=== PATIENT | male | born 1990 | race Hispanic/Latino ===

== ENCOUNTER 2021-08-20 18:07 | Emergency (ER) | payer BC ==
[~2021-08-20] VITALS: Ht 175.3 cm; Wt 73.0 kg
[~2021-08-20 18:07] MED LIST: BACTRIM DS1 TAB PO; HYDROCORTISO2.51 EX
[2021-08-20 19:58] LABS: HEMATOCRIT 43.1 % (39.0-50.0); IMMATURE GRANULOCYTES 0.2 % (0.0-5.0); MEAN CELL VOLUME 91.7 fL CALC (80.0-100.0); MEAN CORPUSCULAR HGB 31.9 pG CALC (26.0-32.0); MEAN CORPUSCULAR HGB CONC 34.8 g/dL CAL (32.0-36.0); NEUT# 9.74 thou/uL (1.82-7.42); RED BLOOD COUNT 4.7 mill/uL (4.70-6.10); RED CELL DISTRI WIDTH 12.2 % (11.5-15.5)
[2021-08-20 20:15] LABS: ALBUMIN 4.8 g/dL (3.2-5.0); ALKALINE PHOSPHATASE 63 u/l (38-126); AMYLASE 66 u/l (30-110); ANION GAP 10 (6-22 (CALC)); BILIRUBIN, TOTAL 0.8 mg/dL (0.0-1.4); BUN 30 mg/dL (9-20); BUN/CREATININE RATIO 38 (12-20 (CALC)); CARBON DIOXIDE 31 mmol/l (22-30); CHLORIDE 103 mmol/l (95-108); CREATININE 0.8 mg/dL (0.7-1.3); ETHYL ALCOHOL 0 mg/dl (0-30); GFR > 60 ML/MIN (>=60 (CALC)); GFR FOR AFR.AMER. > 60 ML/MIN (>=60 (CALC)); LIPASE 69 u/l (23-300); POTASSIUM 4.7 mmol/l (3.5-5.1); SGOT/AST 28 u/l (17-59); SODIUM 139 mmol/l (137-146); TOTAL PROTEIN 7.7 g/dL (6.3-8.2)
[2021-08-20 20:17] LABS: ACT PARTIAL THROMBO TIME 18.5 SECONDS (20.0-32.5); INTERNATIONAL NORMALIZED RATIO 0.9 RATIO (0.7-1.3); PROTHROMBIN TIME 9.9 SECONDS (9.0-12.5)
[2021-08-20 20:25] LABS: URINE BILIRUBIN - DIPSTICK NEGATIVE (NEGATIVE); URINE BLOOD DIPSTICK NEGATIVE (NEGATIVE); URINE COLOR YELLOW; URINE GLUCOSE - DIPSTICK NEGATIVE (NEGATIVE); URINE KETONE NEGATIVE (NEGATIVE); URINE LEUK ESTERASE NEGATIVE (NEGATIVE); URINE PROTEIN - DIPSTICK NEGATIVE (NEG-TRACE); URINE SPECIFIC GRAVITY 1.015; URINE UROBILINOGEN - DIPSTICK 0.2 E.U./dL (0.2)
[2021-08-20 20:26] LABS: URINE NITRITE - DIPSTICK NEGATIVE (Negative)
[2021-08-20] MEDS ORDERED: PROTONIX40 M2 PO (20:35)
[2021-08-20 21:30] VITALS: BP 125/70
== END 2021-08-20 21:32 | disposition home or self-care (01) | DRG 379 ==
LOC: ED 18:07
PROVIDERS: Family Medicine
DX: K29.21 Alcoholic gastritis with bleeding (principal); F41.9 Anxiety disorder, unspecified
CPT/HCPCS: S0164

== ENCOUNTER 2021-08-20 22:45 | Observation (INO) | payer BC ==
[~2021-08-20] VITALS: Ht 175.3 cm; Wt 72.0 kg
[~2021-08-20 22:45] MED LIST changes: +PROTONIX40 M2 PO
[2021-08-20 23:43] LABS: HEMATOCRIT 35.6 % (39.0-50.0); HEMOGLOBIN 12.2 g/dl (14.0-18.0); IMMATURE GRANULOCYTES 0.7 % (0.0-5.0); MEAN CELL VOLUME 92.5 fL CALC (80.0-100.0); MEAN CORPUSCULAR HGB 31.7 pG CALC (26.0-32.0); MEAN CORPUSCULAR HGB CONC 34.3 g/dL CAL (32.0-36.0); NEUT# 7.42 thou/uL (1.82-7.42); RED BLOOD COUNT 3.85 mill/uL (4.70-6.10); RED CELL DISTRI WIDTH 12.3 % (11.5-15.5)
[2021-08-21] LABS: ALKALINE PHOSPHATASE 51 u/l (38-126); AMYLASE 48 u/l (30-110); ANION GAP 10 (6-22 (CALC)); BILIRUBIN, TOTAL 0.6 mg/dL (0.0-1.4); BUN 30 mg/dL (9-20); BUN/CREATININE RATIO 37 (12-20 (CALC)); CARBON DIOXIDE 29 mmol/l (22-30); CHLORIDE 107 mmol/l (95-108); CREATININE 0.8 mg/dL (0.7-1.3); GFR > 60 ML/MIN (>=60 (CALC)); GFR FOR AFR.AMER. > 60 ML/MIN (>=60 (CALC)); LIPASE 49 u/l (23-300); POTASSIUM 4.8 mmol/l (3.5-5.1); SGOT/AST 23 u/l (17-59); SODIUM 140 mmol/l (137-146); TOTAL PROTEIN 6.4 g/dL (6.3-8.2)
[2021-08-21 00:09] LABS: ALBUMIN 3.8 g/dL (3.2-5.0)
[2021-08-21 00:30] VITALS: BP 128/70
[2021-08-21 04:00] VITALS: BP 112/65
[2021-08-21 05:03] LABS: HEMATOCRIT 31.8 % (39.0-50.0); HEMOGLOBIN 10.8 g/dl (14.0-18.0); MEAN CELL VOLUME 93.5 fL CALC (80.0-100.0); MEAN CORPUSCULAR HGB 31.8 pG CALC (26.0-32.0); NEUT# 6.37 thou/uL (1.82-7.42); RED BLOOD COUNT 3.4 mill/uL (4.70-6.10); RED CELL DISTRI WIDTH 12.4 % (11.5-15.5)
[2021-08-21 05:24] LABS: ANION GAP 7 (6-22 (CALC)); BUN 25 mg/dL (9-20); BUN/CREATININE RATIO 37 (12-20 (CALC)); CARBON DIOXIDE 27 mmol/l (22-30); CHLORIDE 109 mmol/l (95-108); CREATININE 0.7 mg/dL (0.7-1.3); GFR > 60 ML/MIN (>=60 (CALC)); GFR FOR AFR.AMER. > 60 ML/MIN (>=60 (CALC)); POTASSIUM 5.1 mmol/l (3.5-5.1); SODIUM 138 mmol/l (137-146)
[2021-08-21 08:03] VITALS: BP 129/61
[2021-08-21 14:14] LABS: HEMATOCRIT 28.7 % (39.0-50.0); HEMOGLOBIN 10.1 g/dl (14.0-18.0)
[2021-08-21 15:21] VITALS: BP 120/70
[2021-08-21 17:51] LABS: HEMATOCRIT 29.8 % (39.0-50.0); HEMOGLOBIN 10.1 g/dl (14.0-18.0)
[2021-08-21 19:10] VITALS: BP 115/65
[2021-08-22] VITALS (12 sets, daily range): BP systolic 108–123; BP diastolic 55–70
[2021-08-22 00:20] LABS: HEMATOCRIT 27.4 % (39.0-50.0); HEMOGLOBIN 9.2 g/dl (14.0-18.0)
[2021-08-22 06:28] LABS: HEMATOCRIT 26.5 % (39.0-50.0); HEMOGLOBIN 9.1 g/dl (14.0-18.0)
[2021-08-22 12:46] LABS: HEMATOCRIT 29.8 % (39.0-50.0); HEMOGLOBIN 10.3 g/dl (14.0-18.0)
[2021-08-22 18:21] LABS: HEMATOCRIT 28.9 % (39.0-50.0); HEMOGLOBIN 9.9 g/dl (14.0-18.0)
[2021-08-23] VITALS: BP 113/66
[2021-08-23 03:42] VITALS: BP 112/55
[2021-08-23 05:23] LABS: HEMATOCRIT 30.7 % (39.0-50.0); HEMOGLOBIN 10.7 g/dl (14.0-18.0); IMMATURE GRANULOCYTES 0.2 % (0.0-5.0); MEAN CELL VOLUME 93.3 fL CALC (80.0-100.0); MEAN CORPUSCULAR HGB 32.5 pG CALC (26.0-32.0); MEAN CORPUSCULAR HGB CONC 34.9 g/dL CAL (32.0-36.0); NEUT# 3.2 thou/uL (1.82-7.42); RED BLOOD COUNT 3.29 mill/uL (4.70-6.10); RED CELL DISTRI WIDTH 12.5 % (11.5-15.5)
[2021-08-23 05:25] LABS: BUN 9 mg/dL (9-20); BUN/CREATININE RATIO 12 (12-20 (CALC)); CARBON DIOXIDE 25 mmol/l (22-30); CHLORIDE 109 mmol/l (95-108); CREATININE 0.7 mg/dL (0.7-1.3); GFR > 60 ML/MIN (>=60 (CALC)); GFR FOR AFR.AMER. > 60 ML/MIN (>=60 (CALC)); SODIUM 139 mmol/l (137-146)
[2021-08-23 05:32] LABS: ANION GAP 9 (6-22 (CALC)); POTASSIUM 3.5 mmol/l (3.5-5.1)
[2021-08-23 07:42] VITALS: BP 130/69
[2021-08-23] MEDS ORDERED: FERROUS SULF325 M2 PO (10:10)
[2021-08-23] MEDS ORDERED: PROTONIX40 M2 PO (10:10)
[2021-08-23 10:18] VITALS: BP 138/71
== END 2021-08-23 12:01 | disposition home or self-care (01) | DRG 378 ==
LOC: ED 22:45 → ED-I 23:14 → ED 23:14 → ED-I 23:15 → ED 23:20 → MS2 23:21
PROVIDERS: Family Medicine; ADMIT Internal Medicine; ATTEND Internal Medicine
PROC: 0DJ08ZZ Inspection of Upper Intestinal Tract, Via Natural or Artificial Opening Endoscopic (ICD-10-PCS; principal; 2021-08-22)
DX: K29.21 Alcoholic gastritis with bleeding (principal); D62 Acute posthemorrhagic anemia; K21.01 Gastro-esophageal reflux disease with esophagitis, with bleeding; K29.81 Duodenitis with bleeding; K44.9 Diaphragmatic hernia without obstruction or gangrene; F10.10 Alcohol abuse, uncomplicated; F41.9 Anxiety disorder, unspecified; Z20.822 Contact with and (suspected) exposure to COVID-19
CPT/HCPCS: G0378; S0164